=== PATIENT | female | born 1990 | race Caucasian/White ===

== ENCOUNTER 2017-01-01 14:17 | Emergency (ER) | payer OTHER ==
[~2017-01-01] VITALS: Ht 165.1 cm; Wt 74.5 kg
[~2017-01-01 14:17] MED LIST: BACTRIM,SEPT1 TABLET PO; KEFLEX500 MG PO; NOHOMEMEDS; NORCO 5/3251 TABLET PO; PEN-VEE K,VEET500 MG PO; PERCOCET 10/1 TABLET PO; PERCOCET 5/31 TABLET PO; ZOFRAN4 MG PO
[2017-01-01] MEDS ORDERED: NAPROSYN500 MG PO (14:57)
[2017-01-01] MEDS ORDERED: PEN-VEE K,VEET500 MG PO (14:57)
[2017-01-01 15:09] VITALS: BP 139/94
== END 2017-01-01 15:12 | disposition home or self-care (01) ==
LOC: EME 14:17
DX: K04.7 Periapical abscess without sinus (principal); R68.84 Jaw pain
CPT/HCPCS: 99281; 99284